=== PATIENT | female | born 1955 | race Caucasian/White ===

== ENCOUNTER → 2024-02-29 | Outpatient (CLI) | payer MEDICARE, SELFPAY ==
--- NOTE | 2024-02-29 09:28 | US_ITS ---
INDICATION: THROMBOCYTOPENIA EXAMINATION: Ultrasound US Abdomen Complete TECHNIQUE: Hernandez-scale and color Doppler imaging was performed of the abdomen. COMPARISON: No relevant prior comparison study available FINDINGS: LIVER: There is normal echotexture. No focal hepatic lesion. No intrahepatic biliary ductal dilatation. There is no free fluid. GALLBLADDER AND BILIARY TREE: No shadowing gallstone, pericholecystic fluid or gallbladder wall thickening is demonstrated. The proximal common bile duct measures 4.4 mm, which is within normal limits for the patient''s age. SONOGRAPHIC LUO''S SIGN: Negative. PANCREAS: No focal abnormality is demonstrated in the pancreas. No pancreatic ductal dilatation. SPLEEN: Spleen is enlarged measuring up to 17.2 cm in the craniocaudal dimension. KIDNEYS: There is no hydronephrosis. There are echogenic foci within the left kidney measuring up to 9.1 mm by my measurements. No focal lesion, or perinephric collection is demonstrated. VESSELS: Submitted longitudinal images of the intra-abdominal aorta demonstrate no gross abnormalities and are unremarkable. The IVC is patent. US/Abdomen Complete IMPRESSION: Splenomegaly. Echogenic foci within the left kidney, may reflect nonobstructing calculi or may be vascular. Electronically Signed: Zoë Aadms MD at 17:00 EST ,
== END | disposition home or self-care (01) ==
PROVIDERS: PCP Physician Assistant; Referring Provider Internal Medicine Medical Oncology; Visit Provider Internal Medicine Medical Oncology
DX: D69.6 Thrombocytopenia, unspecified (principal)
CPT/HCPCS: 76700

== ENCOUNTER → 2024-04-11 | Outpatient (CLI) | payer MEDICARE, SELFPAY ==
--- NOTE | 2024-04-11 12:42 | CT_ITS ---
PROCEDURE: EXTREMITY LOWER WITHOUT CONTRA REASON FOR EXAM: Chronic left knee pain. [facility] protocol for surgical planning of left total knee replacement. TECHNIQUE: Multiple axial tomographic images of the left hip joint, left knee joint and left ankle joint were obtained. Coronal and sagittal reconstruction was obtained as well. COMPARISON: None. FINDINGS: Bones: No evidence of fracture. Joints: Imaging of the left hip joint was obtained. Beeg-ow-azcyaxrf degree of joint space narrowing along the posterior aspect of the left hip joint. Imaging of the left knee joint was obtained. There is a marked degree of joint space narrowing and subchondral cystic changes in both compartments of the knee worse on the medial aspect. There is also evidence of degenerative spur formation along the distal femoral condyles and medial tibial plateau. Marked degree of joint space narrowing and degenerative changes of the patellofemoral joint with evidence of degenerative spur formation. Imaging of the ankle joint was obtained. No significant abnormality is seen. Soft Tissues: Moderate-sized knee joint effusion. CT/Extremity Lower without Contra IMPRESSION: Marked degree of tricompartmental osteoarthritis of the left knee joint with a moderate-sized joint effusion. One or more dose reduction techniques were used (e.g., Automated exposure contr ol, adjustment of the mA and/or kV according to patient size, use of iterative reconstruction technique). Reading Location: [facility]
[2024-04-11 13:41] LABS: Absolute Lymphocyte Count 0.92 X10^3/uL (0.83-4.51); Absolute Neutrophil Count 2.8 X10^3/uL (2.0-7.7); Basophil# 0.03 X10^3/uL; Basophil% 0.7 % (0-1); Eosinophil# 0.05 X10^3/uL; Eosinophils% 1.2 % (0-5); Hematocrit 37.2 % (37-47); Hemoglobin 13.1 g/dL (12.0-15.0); Lymphocyte # 0.92 X10^3/ul (0.83-4.51); Lymphocyte % 22.1 % (19-41); Mean Corp Hgb Conc 35.2 g/dL (32-36); Mean Corpuscular Hgb 29.8 pg (27.0-32.0); Mean Corpuscular Volume 84.5 fL (81-99); Mean Platelet Vol. 8.8 fl (6.2-12.0); Monocyte# 0.39 X10^3/uL; Monocyte% 9.4 % (0-10); NRBC Flagged by Analyzer 0 % (0-5); Neutrophil # 2.76 X10^3/uL (2.7-7.7); Neutrophil % 66.4 % (47-70); Platelet Count 116 K/mm3 (150-450); RBC Distribution Width CV 13.6 % (11.6-14.6); RBC Distribution Width SD 41.9 fl (35.1-43.9); White Blood Count 4.2 K/mm3 (4.4-11.0)
== END | disposition home or self-care (01) ==
PROVIDERS: PCP Physician Assistant; Referring Provider Internal Medicine Hematology & Oncology; Visit Provider Specialist
DX: M17.12 Unilateral primary osteoarthritis, left knee (principal); M21.162 Varus deformity, not elsewhere classified, left knee; D69.6 Thrombocytopenia, unspecified
CPT/HCPCS: 73700; 85025

== ENCOUNTER 2024-05-05 07:10 | Observation (INO) | payer MEDICARE, SELFPAY ==
[2024-04-11 13:45] LABS: Hemoglobin A1c 5.3 % (<=5.6)
[2024-04-11 14:06] LABS: Albumin, Serum 4.1 g/dL (3.4-4.8); Magnesium 1.9 mg/dL (1.5-2.2)
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
[2024-05-05] VITALS (17 sets, daily range): BP systolic 75–127; BP diastolic 39–68; PULSE 66–96; RESP 12–18; TEMP 36.1–37.1; O2SAT 94–100; BMI 33.5; BMI 33.6
--- NOTE | 2024-05-05 07:09 | PRE.ANES_ITS ---
Assessment & Plan Anesthesia* Anesthesia Assessment Anesthesia Assessment: Discussed sedation and/or anesthesia options, risks, benefits, and alternatives with patient/parents/legal guardian/POA. Questions invited. The patient/parents/legal guardian/POA seems to understand and agrees to proceed with anesthesia plan. Reviewed the physical assessment, medical history, allergy history and patient home medications list prior to surgery/procedure/anesthetic and documented any changes. Performed airway and anesthesia risk assessments. Focused Labs Anesthesia Preop lab: CBC WBC 4.2 K/mm3 (4.4-11.0) L 04/11/24 13:17 04/11/24 RBC 4.40 M/mm3 (4.2-5.4) 04/11/24 13:17 04/11/24 Hgb 13.1 g/dL (12.0-15.0) 04/11/24 13:17 04/11/24 Hct 37.2 % (37-47) 04/11/24 13:17 04/11/24 Plt Count 116 K/mm3 (150-450) L 04/11/24 13:17 04/11/24 CHEMISTRY Potassium 3.9 mmol/L (3.5-5.1) 02/26/24 16:50 02/26/24 Sodium 138 mmol/L (136-145) 02/26/24 16:50 02/26/24 Magnesium 1.9 mg/dL (1.5-2.2) 04/11/24 13:17 04/11/24 BUN 13 mg/dL (7-18) 02/26/24 16:50 02/26/24 Creatinine 0.70 mg/dL (0.55-1.02) 02/26/24 16:50 02/26/24 Glucose 116 mg/dL (74-106) H 02/26/24 16:50 02/26/24 COAG Pre-Assessment Diagnosis/Proposed Procedure Planned Operative Procedure(s): LEFT TOTAL KNEE REPALCEMENT ROBOTIC ASSIST Anesthesia History Anesthesia History - senior systems analyst: Anesthesia History - senior systems analyst Hx Hospitalization No 04/08/24 10:16 Any Problems With Anesthesia No 04/08/24 10:16 Cholinesterase deficiency No 04/08/24 10:16 You/Your Family Experience No 04/08/24 10:16 fever (hyperthermia) with Relationship Recent Exposure to Contagious Disease Does patient have nerve No 04/08/24 10:16 stimulator Patient instructed to have device shut off --Does patient have Pacemaker or ICD? When Was Last Pacemaker Check QUESTION #4 FULL TEXT: You/Your Family Experience fever (hyperthermia) with Anesthesia Last Oral Intake Last Oral intake: Last Oral Intake NPO since Meds taken in AM with sips of water? Meds patient instructed to take am of surgery PONV PONV - senior systems analyst: PONV - senior systems analyst Female Yes 04/08/24 10:16 HX of Motion Sickness No 04/08/24 10:16 HX of N/V After Surgery No 04/08/24 10:16 Non-Smoker Yes 04/08/24 10:16 Duration of Surgery greater Yes 04/08/24 10:16 than 60 minutes Number of Risk Factors 3 04/08/24 10:16 PONV Score Moderate Risk 04/08/24 10:16 Height & Weight Height & Weight: Anesthesia: Height & Weight Height 5 ft 5 in 03/19/24 15:33 Respiratory Assessment Respiratory Assessment - senior systems analyst: Respiratory Tract Infection Hx - senior systems analyst Hx Respiratory Tract Infection No 04/08/24 10:16 STOP Sleep Apnea STOP Sleep Apnea - senior systems analyst: STOP Sleep Apnea - senior systems analyst Hx Hypertension No 04/08/24 10:16 Hx Sleep Apnea No 04/08/24 10:16 CPAP BIPAP Do you snore loudly (louder Yes 04/08/24 10:16 than talking or can be heard Do you often feel tired/ No 04/08/24 10:16 fatigued/ sleepy during daytime? Has anyone observed you stop No 04/08/24 10:16 breathing during sleep? STOP Results Negative 04/08/24 10:16 QUESTION #5 FULL TEXT : Do you snore loudly (louder than talking or can be heard through closed doors)? Tobacco Use History Tobacco Use History - senior systems analyst: Tobacco Use History - senior systems analyst Tobacco Use Smoking Status Never smoker 04/08/24 10:16 Hx Tobacco Use No 04/08/24 10:16 Years Smoking Packs Smoked per Day Smoking Cessation Date was within the last 15 years Hx Smoking Cessation Date Hx Smoking Cessation Counseling Hematologic Medial History Hematologic Hx - senior systems analyst: Hematologic Medical Hx - binding folder machine Hx of Blood Transfusion No 04/08/24 10:16 Hx of Transfusion in last 3 No 04/08/24 10:16 Months Date of Last Transfusion (if within last 3 months) Ever experience any problems No 04/08/24 10:16 with transfusion(s)? Specify any problems Hx of Preganancy in last 3 No 04/08/24 10:16 Months Nurse Filling Out Transfusion [id number] 04/08/24 10:16 & Questions: Date: 04/08/24 04/08/24 10:16 Time: 10:38 04/08/24 10:16 Patient unable to answer at this time (ie. confused, unrespo /Reproduction History /Reproductive History - senior systems analyst: /Reproductive Hx- senior systems analyst Hx Now No 04/08/24 10:16 Gestational Age (in weeks): EDC: Hx Hx Para Hx Section SAB No 04/08/24 10:16 Active Medications Active Medications: Current Medications Generic Name Dose Route Start Last Admin Trade Name Freq PRN Reason Stop Dose Admin Acetaminophen 1,000 mg 05/05/24 10:00 Acetaminophen 500 Mg Tablet PO 05/05/24 10:01 X1 ONE Celecoxib 400 mg 05/05/24 10:00 Celecoxib 200 Mg Capsule PO 05/05/24 10:01 X1 ONE Tranexamic Acid 2,000 mg/ 0 mg 05/05/24 10:00 Sodium Chloride 100 ml OPERA.SITE 05/05/24 10:01 X1 ONE Sodium Chloride 77.4 ml/ 0 ml 05/05/24 10:00 Ropivacaine 200 mg/ OPERA.SITE 05/05/24 10:01 Epinephrine HCl 0.6 mg/ X1 ONE Ketorolac Tromethamine 30 mg/ Morphine Sulfate 5 mg Dexamethasone Sodium Phosphate 10 mg 05/05/24 10:00 Dexamethasone 10 Mg/Ml Vial IV 05/05/24 10:01 X1 ONE Gabapentin 600 mg 05/05/24 10:00 Gabapentin 600 Mg Tablet PO 05/05/24 10:01 X1 ONE Lactated Ringer's 1,000 mls @ 999 mls/hr 05/05/24 10:00 IV 05/05/24 11:00 .Q1H1M EMILY Cefazolin Sodium 2 gm/ N/A 20 mls @ 400 mls/hr 05/05/24 10:00 IV 05/05/24 10:02 PREOP ONE Vancomycin HCl 1,250 mg/ 275 mls @ 183.333 mls/hr 05/05/24 10:00 Sodium Chloride IV 05/05/24 11:29 PREOP ONE Magnesium Sulfate 2 gm/ 104 mls @ 208 mls/hr 05/05/24 10:00 Dextrose IV 05/05/24 10:29 X1 ONE Insulin Human Lispro 1 - 6 unit 05/05/24 10:00 Insulin Lispro 100 Unit/Ml Insuln.Pen SC Q4H PRN PRN BG>/= 180, SEE PROTOCOL Protocol PFSH Medical History Colonoscopy planned Wears glasses Back pain Rheumatoid arthritis Splenomegaly Leukopenia Obesity Diabetes Thrombocytopenia Elevated LFTs Hyperglycemia Nephrolithiasis Left knee pain Arthritis 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 Liver fibrosis Home Medications ?Medication ?Instructions ?Recorded ?Last Taken ?Type naproxen sodium 220 mg tablet 220 mg PO BID PRN pain 0 03/19/24 Unknown History (Aleve) acetaminophen 650 mg 650 mg PO Q12H PRN pain 05/30 Unknown History tablet,extended release (8 Hour Pain Reliever) cholecalciferol (vitamin D3) 25 25 mcg PO DAILY Unknown History mcg (1,000 unit) capsule (Vitamin D3) mv-min-iron 4.5 mg-folic ac 120 1 tab PO DAILY 5 Unknown History mcg-vit K1 60 mcg-herbal no.352 tablet (Alive Women's Multivitamin) Allergy/AdvReac Type Severity Reaction Status Date / Time No Known Allergies Allergy Verified 04/08/24 10:12 Family History Mother Thyroid disorder Diabetes Arthritis CAD (coronary artery disease) Father Cancer Sister Diabetes Hypertension Brother Diabetes Surgical History History of liver biopsy History of repair of retinal tear by laser photocoagulation Social History Smoking Status: Never smoker alcohol intake: never substance use type: does not use Review of Systems (Anesthesia) ROS Narrative System reviewed and no additional complaints, except as documented.
[2024-05-05] MEDS: Lactated Ringers 1,000 ML 999 ML IV (07:38)
[2024-05-05 07:39] LABS: Hematocrit 35.9 % (37-47); Hemoglobin 12.9 g/dL (12.0-15.0); Mean Corp Hgb Conc 35.9 g/dL (32-36); Mean Corpuscular Hgb 29.7 pg (27.0-32.0); Mean Corpuscular Volume 82.7 fL (81-99); Mean Platelet Vol. 8.9 fl (6.2-12.0); Platelet Count 104 K/mm3 (150-450); RBC Distribution Width CV 13.3 % (11.6-14.6); RBC Distribution Width SD 39.9 fl (35.1-43.9); Red Blood Count 4.34 M/mm3 (4.2-5.4)
[2024-05-05] MEDS: Magnesium 2 GM for ERAS IV (07:39)
[2024-05-05] MEDS: Vancomycin HCl 1,250 MG in 0.9% Normal Saline (250mL Bag) 250 ML 183.3 MG IV (07:39)
[2024-05-05] MEDS: Acetaminophen 500 MG Tablet 1000 MG PO ×3 (07:39→20:17)
[2024-05-05] MEDS: Gabapentin 600 MG Tablet PO (07:39)
[2024-05-05] MEDS: Celecoxib 200 MG Capsule 400 MG PO (07:39)
--- NOTE | 2024-05-05 08:17 | PRE.ANES_ITS ---
ASA Classification* ASA Classification ASA Classification: 2 Assessment & Plan Anesthesia* Anesthesia Assessment Anesthesia Assessment: Discussed sedation and/or anesthesia options, risks, benefits, and alternatives with patient/parents/legal guardian/POA. Questions invited. The patient/parents/legal guardian/POA seems to understand and agrees to proceed with anesthesia plan. Reviewed the physical assessment, medical history, allergy history and patient home medications list prior to surgery/procedure/anesthetic and documented any changes. Performed airway and anesthesia risk assessments. Anesthesia Type Anesthesia Type: Spinal and Block Anesthesia Focused Assessment* Temperature: 97.8 F Pulse Rate: 86 Blood Pressure: 111/60 Respiratory Rate: 16 Pulse Ox: 98 Airway Assessment Mouth opens: >3 cm Mallampati Score: II Focused Labs Anesthesia Preop lab: CBC WBC 4.0 K/mm3 (4.4-11.0) L 05/05/24 07:05/05/24 RBC 4.34 M/mm3 (4.2-5.4) 05/05/24 07:05/05/24 Hgb 12.9 g/dL (12.0-15.0) 05/05/24 07:30 05/05/24 Hct 35.9 % (37-47) L 05/05/24 07:30 05/05/24 Plt Count 104 K/mm3 (150-450) L 05/05/24 07:30 05/05/24 CHEMISTRY Potassium 3.9 mmol/L (3.5-5.1) 02/26/24 16:50 02/26/24 Sodium 138 mmol/L (136-145) 02/26/24 16:50 02/26/24 Magnesium 1.9 mg/dL (1.5-2.2) 04/11/24 13:17 04/11/24 BUN 13 mg/dL (7-18) 02/26/24 16:50 02/26/24 Creatinine 0.70 mg/dL (0.55-1.02) 02/26/24 16:50 02/26/24 Glucose 116 mg/dL (74-106) H 02/26/24 16:50 02/26/24 COAG PT Pending 05/05/24 07:30 05/05/24 Pre-Assessment Diagnosis/Proposed Procedure Planned Operative Procedure(s): LEFT TOTAL KNEE REPALCEMENT ROBOTIC ASSIST Anesthesia History Anesthesia History - financial administrator: Anesthesia History - financial administrator Hx Hospitalization No 04/08/24 10:16 Any Problems With Anesthesia No 04/08/24 10:16 Cholinesterase deficiency No 04/08/24 10:16 You/Your Family Experience No 04/08/24 10:16 fever (hyperthermia) with Relationship Recent Exposure to Contagious No 05/05/24 07:41 Disease Does patient have nerve No 04/08/24 10:16 stimulator Patient instructed to have device shut off --Does patient have Pacemaker No 05/05/24 07:41 or ICD? When Was Last Pacemaker Check QUESTION #4 FULL TEXT: You/Your Family Experience fever (hyperthermia) with Anesthesia Last Oral Intake Last Oral intake: Last Oral Intake NPO since 04:45 05/05/24 07:41 Meds taken in AM with sips of No 05/05/24 07:41 water? Meds patient instructed to take am of surgery PONV PONV - financial administrator: PONV - financial administrator Female Yes 04/08/24 10:16 HX of Motion Sickness No 04/08/24 10:16 HX of N/V After Surgery No 04/08/24 10:16 Non-Smoker Yes 04/08/24 10:16 Duration of Surgery greater Yes 04/08/24 10:16 than 60 minutes Number of Risk Factors 3 04/08/24 10:16 PONV Score Moderate Risk 04/08/24 10:16 Height & Weight Height & Weight: Anesthesia: Height & Weight Height 5 ft 5 in 05/05/24 07:41 Weight: 91.5 kg 05/05/24 07:41 Body Mass Index (BMI) 33.5 05/05/24 07:41 Respiratory Assessment Respiratory Assessment - financial administrator: Respiratory Tract Infection Hx - financial administrator Hx Respiratory Tract Infection No 04/08/24 10:16 STOP Sleep Apnea STOP Sleep Apnea - financial administrator: STOP Sleep Apnea - financial administrator Hx Hypertension No 04/08/24 10:16 Hx Sleep Apnea No 04/08/24 10:16 CPAP BIPAP Do you snore loudly (louder Yes 04/08/24 10:16 than talking or can be heard Do you often feel tired/ No 04/08/24 10:16 fatigued/ sleepy during daytime? Has anyone observed you stop No 04/08/24 10:16 breathing during sleep? STOP Results Negative 04/08/24 10:16 QUESTION #5 FULL TEXT : Do you snore loudly (louder than talking or can be heard through closed doors)? Tobacco Use History Tobacco Use History - financial administrator: Tobacco Use History - financial administrator Tobacco Use Smoking Status Never smoker 04/08/24 10:16 Hx Tobacco Use No 04/08/24 10:16 Years Smoking Packs Smoked per Day Smoking Cessation Date was within the last 15 years Hx Smoking Cessation Date Hx Smoking Cessation Counseling Hematologic Medial History Hematologic Hx - financial administrator: Hematologic Medical Hx - enterer Hx of Blood Transfusion No 04/08/24 10:16 Hx of Transfusion in last 3 No 04/08/24 10:16 Months Date of Last Transfusion (if within last 3 months) Ever experience any problems No 04/08/24 10:16 with transfusion(s)? Specify any problems Hx of Preganancy in last 3 No 04/08/24 10:16 Months Nurse Filling Out Transfusion [email or web address] 04/08/24 10:16 & Questions: Date: 04/08/24 04/08/24 10:16 Time: 10:38 04/08/24 10:16 Patient unable to answer at this time (ie. confused, unrespo /Reproduction History /Reproductive History - financial administrator: /Reproductive Hx- financial administrator Hx Now No 04/08/24 10:16 Gestational Age (in weeks): EDC: Hx Hx Para Hx Section SAB No 04/08/24 10:16 Active Medications Active Medications: Current Medications Generic Name Dose Route Start Last Admin Trade Name Freq PRN Reason Stop Dose Admin Acetaminophen 1,000 mg 05/05/24 10:00 05/05/24 07:39 Acetaminophen 500 Mg Tablet PO 05/05/24 10:01 1,000 mg X1 ONE Administration Acetaminophen 1,000 mg 05/05/24 07:15 Acetaminophen 500 Mg Tablet PO Q8H EMILY Celecoxib 400 mg 05/05/24 10:00 05/05/24 07:39 Celecoxib 200 Mg Capsule PO 05/05/24 10:01 400 mg X1 ONE Administration Tranexamic Acid 2,000 mg/ 0 mg 05/05/24 10:00 Sodium Chloride 100 ml OPERA.SITE 05/05/24 10:01 X1 ONE Sodium Chloride 77.4 ml/ 0 ml 05/05/24 10:00 Ropivacaine 200 mg/ OPERA.SITE 05/05/24 10:01 Epinephrine HCl 0.6 mg/ X1 ONE Ketorolac Tromethamine 30 mg/ Morphine Sulfate 5 mg Dexamethasone Sodium Phosphate 10 mg 05/05/24 10:00 Dexamethasone 10 Mg/Ml Vial IV 05/05/24 10:01 X1 ONE Doxycycline Monohydrate 100 mg 05/06/24 13:00 Doxycycline 100 Mg Capsule PO BID [facility] Enteral Nutritional Formula 237 ml 05/05/24 08:00 Ensure Surgery 237 Ml Liquid PO TIDCM [facility] Famotidine 20 mg 05/05/24 10:00 Famotidine 20 Mg Tablet PO DAILY [facility] Gabapentin 600 mg 05/05/24 10:00 05/05/24 07:39 Gabapentin 600 Mg Tablet PO 05/05/24 10:01 600 mg X1 ONE Administration Lactated Ringer's 1,000 mls @ 999 mls/hr 05/05/24 10:00 05/05/24 07:38 IV 05/05/24 11:00 999 mls/hr .Q1H1M EMILY Administration Cefazolin Sodium 2 gm/ N/A 20 mls @ 400 mls/hr 05/05/24 10:00 IV 05/05/24 10:02 PREOP ONE Vancomycin HCl 1,250 mg/ 275 mls @ 183.333 mls/hr 05/05/24 10:00 05/05/24 07:39 Sodium Chloride IV 05/05/24 11:29 183.3 mls/hr PREOP ONE Administration Magnesium Sulfate 2 gm/ 104 mls @ 208 mls/hr 05/05/24 10:00 05/05/24 07:39 Dextrose IV 05/05/24 10:29 208 mls/hr X1 ONE Administration Cefazolin Sodium 1 gm in 50 mls @ 150 mls/hr 05/05/24 07:10 IV 05/05/24 15:29 Q8H EMILY Insulin Human Lispro 1 - 6 unit 05/05/24 10:00 Insulin Lispro 100 Unit/Ml Insuln.Pen SC Q4H PRN PRN BG>/= 180, SEE PROTOCOL Protocol Ketorolac Tromethamine 15 mg 05/05/24 07:10 Ketorolac 15 Mg/Ml Vial IV 05/06/24 07:12 Q6H PRN PRN Pain Score 1-10 Morphine Sulfate 2 - 4 mg 05/05/24 07:10 Morphine 2 Mg/Ml Syringe IV Q2H PRN PRN Pain Score 4-10 Morphine Sulfate 2 - 4 mg 05/05/24 07:42 Morphine 4 Mg/Ml Syringe IV Q2H PRN PRN Pain Score 4-10 Ondansetron HCl 4 mg 05/05/24 07:10 Ondansetron 4 Mg/2 Ml Vial IV Q6H PRN PRN NAUSEA/VOMITING Oxycodone HCl 5 - 10 mg 05/05/24 07:10 Oxycodone 5 Mg Tablet PO Q4H PRN PRN Pain Score 4-10 Promethazine HCl 12.5 mg 05/05/24 07:10 Promethazine 25 Mg Tablet PO Q6H PRN PRN NAUSEA/VOMITING Promethazine HCl 12.5 mg 05/05/24 07:10 Promethazine 25 Mg/Ml Syringe IM Q6H PRN PRN NAUSEA/VOMITING Rivaroxaban 10 mg 05/06/24 06:00 Rivaroxaban 10 Mg Tablet PO DAILY@0600 [facility] Senna/Docusate Sodium 2 tablet 05/05/24 10:00 Senna/Docusate Sodium 1 Tablet PO BID [facility] Medical History Colonoscopy planned Wears glasses Back pain Rheumatoid arthritis Splenomegaly Leukopenia Obesity Diabetes Thrombocytopenia Elevated LFTs Hyperglycemia Nephrolithiasis Left knee pain Arthritis 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 Liver fibrosis Home Medications ?Medication ?Instructions ?Recorded ?Last Taken ?Type naproxen sodium 220 mg tablet 220 mg PO BID PRN pain 0 03/19/24 04/27/24 History (Aleve) acetaminophen 650 mg 650 mg PO Q12H PRN pain 03/0 05/3005/04/24 History tablet,extended release (8 Hour Pain Reliever) cholecalciferol (vitamin D3) 25 25 mcg PO DAILY 05/04/24 History mcg (1,000 unit) capsule (Vitamin D3) mv-min-iron 4.5 mg-folic ac 120 1 tab PO DAILY 5 05/04/24 History mcg-vit K1 60 mcg-herbal no.352 tablet (Alive Women's Multivitamin) Allergy/AdvReac Type Severity Reaction Status Date / Time No Known Allergies Allergy Verified 05/05/24 07:44 Family History Mother Thyroid disorder Diabetes Arthritis CAD (coronary artery disease) Father Cancer Sister Diabetes Hypertension Brother Diabetes Surgical History History of liver biopsy History of repair of retinal tear by laser photocoagulation Social History Smoking Status: Never smoker alcohol intake: never substance use type: does not use Review of Systems (Anesthesia) ROS Narrative System reviewed and no additional complaints, except as documented.
[2024-05-05 08:21] LABS: International Normalized Ratio 1.2; Prothrombin Time (Protime)PT. 15.4 SECONDS (11.7-14.9)
--- NOTE | 2024-05-05 08:45 | KNEE_PTH ---
PATIENT: BERTHA FLORES LOC: MS3 U#:[id number] AGE/SX: 68/F ROOM: [facility] [place] RE05/05/[address]: Dr. Atul Costello MD : 1955 BED: 1 DIS: 05/06/2024 SPEC #: [id number] RECD: 05/05/24 13:43 STATUS: HAI CUONG #: [id number] NAHUM: 05/05/24 08:[address]: Atul Costello DEPT: SURGICAL PATHOLOGY RECD BY: Fred Jaime ENTERED: 05/05/24 13:43 SP TYPE: TOTAL KNEE OTHR DR: SARAI Smith Tissues: A - Knee, NOS Procedures: Decalcification bone/plaque Surgery Specimen Level III HEADER OPERATION: ERAS, total knee replacement robotic arm assist PRE-OP DIAGNOSIS: Severe left knee osteoarthritis with valgus alignment TISSUE SUBMITTED: A- Debrided knee bone and tissue MICROSCOPIC DIAGNOSIS A. Left Knee, Osteoarthritis, Total Knee Arthroplasty: * Active chronic inflammation of subarticular bone marrow with focal fibrinoid necrosis. * Active chronic inflammation of articular cartilage and synovium. * Patchy trilineage hematopoiesis. Note: The active chronic inflammation is associated with degenerative changes of bone and cartilage. The history of positive rheumatoid factor is noted. No distinct rheumatoid nodules are observed. The histologic findings raise consideration of rheumatoid arthritis vs osteomyelitis. Recommend clinical correlation with imaging and microbiology findings. MICROSCOPIC DESCRIPTION Slides are reviewed. GROSS DESCRIPTION A. Received in formalin in a container labeled with the patient's name, date of , and debrided knee bone and tissue are multiple cramer and firm fragments of bone consisting of, but not limited to, medial/lateral condyle and tibial plateau. The specimen is 9.0 x 8.5 x 3.0 cm in aggregate. The resection margins are smooth and firm, and the cortical surfaces are markedly pitted and granular. Sectioning reveals firm surfaces. Correctional Officer Lieutenant sections are submitted in A1 following decalcification. [facility] 05-05-2024 CPT:91418,41544
[2024-05-05] MEDS: Cefazolin 1 GM/50 ML BAG IV ×2 (08:54→17:57)
[2024-05-05] MEDS: Cefazolin 2 GM in Syringe 10 ML IV (08:55)
[2024-05-05 09:33] LABS: Bedside Glucose 108 mg/dL (74-106)
[2024-05-05] MEDS: JPS (Morphine 10mg/ml) OPERA.SITE (09:41)
--- NOTE | 2024-05-05 10:24 | OP.PCM_ITS ---
Problems Associated Problem List Diagnoses (1) Status post left knee replacement: Operative Report (Standard) Operative Information Date of Procedure: 05/05/24 Pre-Operative Diagnosis: Left knee primary osteoarthritis Post-Operative Diagnosis: Left knee primary osteoarthritis Surgery/Procedure Performed: Left knee minimally invasive robotic assisted total arthroplasty lapping machine operator: Yes Ingredient Mixer: Mitzi Knight Tasks completed by airplane first officer: Other (See body of operative report) Additional operations manager assistant?: No Type of Anesthesia: Spinal RN Documented Start/Stop Times: Operation Date: 05/05/24 08:45 Case Time Into Pre-Op 05/05/24 06:58 Out of Pre-Op 05/05/24 08:52 Anesthesia Start 05/05/24 08:54 Into Room 05/05/24 08:54 Procedure Start 05/05/24 09:15 Procedure End 05/05/24 11:51 Anesthesia End 05/05/24 11:55 Out of Room 05/05/24 11:55 Into Recovery 05/05/24 12:00 Out of Recovery 05/05/24 13:27 Procedure Start Time: 09:15 Procedure Stop Time: 11:51 Select all DRAINS/GRAFTS/IMPLANTS that apply: Prosthetic device Prosthetic device details: See body of operative report Special Medications: 2 g Ancef, TXA, joint cocktail (5 mg Duramorph, 30 mL of 0.5% Ropivicaine, 1000 units of epinephrine, 30 mg of Toradol) Estimated Blood Loss: 300 mL Fluids Replaced: 1800 mL crystalloid Specimen collected: Yes Description of specimen(s) removed: Bony cuts Description of surgery: Implants used: 1. [place] size 4 triathlon cruciate retaining distal femoral press-fit component 2. [place] size 4 press-fit tritanium tibial baseplate 3. Pavel X3 10 millimeter CS polyethylene 4. Pavel X3 29 mm asymmetric patella Brief history operative indications: 68-year-old female with history of left knee osteoarthritis with radiographic findings with loss of joint space, osteophyte formation and subchondral sclerosis. Failed conservative measures as mentioned in the H&P. Discussion of total knee arthroplasty as well as risk and benefits were discussed the patient including but not limited to blood loss, DVTs, PEs, neurovascular damage, general risk of anesthesia including loss of life, and stiffness or instability were discussed with patient. Patient demonstrated understanding and was able to sign informed consent. Procedure: On the date of procedure patient's left lower extremity was marked in the preoperative area. The patient was then taken back to the operating room where the patient was placed on the table in the supine position. All bony prominences were identified a well-padded. Anesthesia assumed control of the C-spine and airway and remained controlled throughout the remainder of the procedure. A tourniquet was placed on the left upper thigh and the leg was prepped in a sterile fashion. The surgeon then scrubbed at this time .Upon reentering the room left lower extremity was draped in a standard orthopedic fashion. A timeout was then called and everyone agreed upon the side, the site, the procedure to be performed, patient's identity and antibiotics given. Esmarch bandage was used to exsanguinate the extremity and the tourniquet was placed up to 250 mmHg with the knee in flexion. A midline skin incision was made and sharp dissection was taken down through skin subcutaneous tissue and fat. The standard medial parapatellar incision was made and the patella was subluxed laterally. An Appropriate deep MCL release was done and the fat pad was resected. Our attention was then directed to the patella. The patella was everted and a flat resection was made. The knee was then flexed up in 2 femoral pins were placed inside the incision and 2 tibial pins were placed outside the incision in the medial tibia bicortically. Once this was completed the 2 checkpoints in the femur and tibia were placed. Knee was then flexed up and the bony landmarks were registered. Once this was completed knee was taken through range of motion and manually stressed allowing us to a plan for an appropriate tibial cut. The robotic arm was brought into the field sterilely and checkpoint and saw were registered. Based on the patient's deformity the tibial cut was made in 1 degree of bowel. At this time the tensioner was then placed in the joint and ligament tension was checked at 90 degrees and full extension. Based on the patient's ligamentous tension appropriate adjustments were made to the operative plan and ligament releases were done. Once we were happy with our operative plan with balanced flexion and extension gaps our attention was directed to the femur. The robot was brought into the field sterilely and registered. Posterior condylar cuts, anterior chamfer cuts and anterior cuts were appropriately made for a size 4 femur. When these were completed the saws were switched out in the distal femoral and posterior chamfer cuts were made. Protecting the soft tissue throughout this time. A size 4 tibial base plate was selected. the knee was flexed to 90 degrees and the soft tissues and posterior osteophytes were removed from the joint. 40 cc of the periarticular injection was injected into the posterior medial corner of the joint. The appropriate trials were then placed on the femur and tibia. A trial polyethylene was trialed to ensure proper balancing and stability of the knee. The appropriate tibial internal rotation was then marked with a bovie. Our attention was then directed to the patella. The lug holes were drilled and the patella trial was placed. Patellar tracking was checked and deemed appropriate. Once we were happy lug holes were drilled for the femur and trial components were removed. The tibia was subluxed and pinned into place and the keel was punched and drilled appropriately. Final components were verified and opened. The wound was copiously irrigated with normal saline. When the cement was ready the bone quality was assured and the components were impacted into place starting with the tibia then the femur, finally the patella was compressed into place. The trial poly component was placed and the knee was placed in full extension. Once the the implants were secured, the tracking, alignment and balance were verified and a size [] polyethylene component was placed. Once the final components were placed a 3-minute dilute Betadine lavage was performed followed by an Irrisept lavage was performed and the wound was copiously irrigated with normal saline solution and the periarticular injection was given. The wound was closed in a layer celis fashion using #1 vicryl interrupted sutures for the arthrotomy, 2-0 interrupted Vicryl suture for the subcuticular layer and tiera for final skin closure. A sterile compressive dressing was then placed. The patient was then awakened from anesthesia, transferred to the [facility] and transferred to the PACU for recovery. Post op plan DVT ppx: Xarelto 10 mg daily due to previous DVT, thigh high compression stockings Follow up: in office in 2 weeks for wound check PT: to start POD #0 at hospital, outpatient PT should be arranged. Patient replaced on doxycycline postoperatively secondary to positive staph screening preoperatively My physician operations manager assistant was a vital part of this case, they was important because there was not another skilled set of hands available to their training and aptitude needed for safe and appropriate completion of this case. They were important in appropriate retraction during the case, and protection of soft tissues during bony cuts. In particular the experience and skill of this operations manager assistant made for safe retraction and exposure during implantation of medical implants without damage to vital soft tissues or structures. His intimate knowledge of the case and my steps aided in safe and expedient completion of the procedure as well as appropriate position of the leg during the case. He was also vital in assisting with closure under my direct supervision. Due to the complexity of this case robotic arm was used to assist in the surgery to improve accuracy and clinical outcomes. Surgical Findings: Stage IV osteoarthritis. Stable knee with good patella tracking Complications Complications: No Admit VTE Documentation VTE Present on Admission: No VTE Mechan Device Prophylaxis: SCD's and Thigh High MORRIS Hose VTE Pharm Prophylaxis ordered?: Yes
[2024-05-05] MEDS: TRANEXAMIC ACID 2,000 MG, 0.9% Normal Saline (100mL Bag) 100 ML OPERA.SITE (10:31)
--- NOTE | 2024-05-05 12:20 | RAD_ITS ---
PROCEDURE: KNEE 1 OR 2 VIEWS 05/05/2024 REASON FOR EXAM: POST OP TOTAL TECHNIQUE: 2 view(s) of the left knee COMPARISON: None FINDINGS: The patient is status post left total knee replacement. There is good alignment. Postoperative soft tissue changes. RAD/Knee 1 or 2 Views IMPRESSION: Status post left total knee replacement. There is good alignment. Postoperative soft tissue changes. Reading Location: [facility]-
--- NOTE | 2024-05-05 12:21 | PCM.POST.ANE ---
Anesthesia: Postop Eval I Current Vital Signs Temperature: 98.1 F Pulse Rate: 86 Blood Pressure: 100/55 Respiratory Rate: 16 Pulse Ox: 94 Assessment Airway patent: Yes Spontaneous unlabored respirations: Yes nausea: Yes Vomiting: No Anesthesia Complication: No Fluid Hydration Crystalloid volume administer (ml): 2,000 Total IV fluid infused: 2,000 Progress Note Anesthesia document: Postop Eval 1 completed: Yes
--- NOTE | 2024-05-05 12:52 | POSTOPAN2_ITS ---
Anesthesia Postop Eval I Sum Postop Eval Completion status Anesthesia document: Postop Eval 1 completed: Yes Anesthesia Postop Eval I Summary Anesthesia Postop Eval I Summary: Anesthesia Postop Eval I: Assessment Summary Airway patent Yes 05/05/24 12:21 BROMINATION EQUIPMENT OPERATOR.[email or web address] Spontaneous unlabored Yes 05/05/24 12:21 BROMINATION EQUIPMENT OPERATOR.TNES respirations Mental status nausea Yes 05/05/24 12:21 BROMINATION EQUIPMENT OPERATOR.TNES Vomiting No 05/05/24 12:21 BROMINATION EQUIPMENT OPERATOR.TNES Anesthesia Postop Eval I: Fluid Summary Crystalloid volume administer 2,000 05/05/24 12:21 BROMINATION EQUIPMENT OPERATOR.TNES (ml) Colloids volume administered ( ml) Blood Product volume administered (ml) Total IV fluid infused 2,000 05/05/24 12:21 BROMINATION EQUIPMENT OPERATOR.TNES Anesthesia Postop Eval I: Summary Notes Anesthesia Complication No 05/05/24 12:21 BROMINATION EQUIPMENT OPERATOR.TNES Anesthesia Complication Comment: Post-operative progress note Anesthesia: Postop Eval II Evaluation Mental status: Awake Pain Level: 0 nausea: No Vomiting: No
--- NOTE | 2024-05-05 12:52 | PCM.POSTANE2 ---
Anesthesia Postop Eval I Sum Postop Eval Completion status Anesthesia document: Postop Eval 1 completed: Yes Anesthesia Postop Eval I Summary Anesthesia Postop Eval I Summary: Anesthesia Postop Eval I: Assessment Summary Airway patent Yes 05/05/24 12:21 STRIPPING AND BOOKING MACHINE OPERATOR.[email or web address] Spontaneous unlabored Yes 05/05/24 12:21 STRIPPING AND BOOKING MACHINE OPERATOR.TNES respirations Mental status nausea Yes 05/05/24 12:21 STRIPPING AND BOOKING MACHINE OPERATOR.TNES Vomiting No 05/05/24 12:21 STRIPPING AND BOOKING MACHINE OPERATOR.TNES Anesthesia Postop Eval I: Fluid Summary Crystalloid volume administer 2,000 05/05/24 12:21 STRIPPING AND BOOKING MACHINE OPERATOR.TNES (ml) Colloids volume administered ( ml) Blood Product volume administered (ml) Total IV fluid infused 2,000 05/05/24 12:21 STRIPPING AND BOOKING MACHINE OPERATOR.TNES Anesthesia Postop Eval I: Summary Notes Anesthesia Complication No 05/05/24 12:21 STRIPPING AND BOOKING MACHINE OPERATOR.TNES Anesthesia Complication Comment: Post-operative progress note Anesthesia: Postop Eval II Evaluation Mental status: Awake Pain Level: 0 nausea: No Vomiting: No
--- NOTE | 2024-05-05 16:00 | PN.HOSP_ITS ---
Reason for Visit Reason for Visit: Diagnoses Encounter for other preprocedural examination (05/05/24) Subjective Subjective 68-year-old female history of nephrolithiasis, leukopenia, thrombocytopenia presented to [facility] 05/05/2024 for a left total knee arthroplasty with Dr. Costello.? Hospitalist consulted for postop medical management. ?Patient evaluated at bedside. Patient overall feeling well, anxious to be able to sit up and move around, no chest pain or shortness of breath, no other acute complaints Objective Data Objective Data Vital Signs: Vital Signs Temp Pulse Resp BP Pulse Ox O2 Del Method O2 Flow Rate 97.7 F L 93 14 111/58 L 100 Room Air 4 05/05/24 14:05/05/24 14:05/05/24 14:05/05/24 14:05/05/24 14:05/05/24 14:05/05/24 13:52 Oxygen Flow Rate (L/min) 4 Oxygen Delivery Method Room Air Weight: 91.5 kg Body Mass Index (BMI) 33.6 Intake & Output: Intake and Output for Last 24 Hours 05/03/24 05/04/24 05/05/24 23:59 23:59 23:59 Intake Total 1449 / 1449 Balance 1449 / 1449 Lab / Micro Data 05/05/24 07:30 Labs: Laboratory Results - last 24 hr 05/05/24 07:21: POC Glucose 108 H 05/05/24 07:30: WBC 4.0 L, RBC 4.34, Hgb 12.9, Hct 35.9 L, MCV 82.7, MCH 29.7, MCHC 35.9, RDW Std Deviation 39.9, RDW Coeff of Janet 13.3, Plt Count 104 L, MPV 8.9, PT 15.4 H, INR 1.2 Micro: Microbiology 04/11/24 13:17 Swab (Method) Nasal Screen MRSA/MSSA - Final Radiography Diagnostic Testing: Radiology Impression Knee X-Ray 05/05/24 12:20 IMPRESSION: Status post left total knee replacement. There is good alignment. Postoperative soft tissue changes. Reading Location: [place] [address] Physical Exam Narrative General: Alert, oriented, no apparent distress HEENT: Atraumatic, normocephalic Eyes: Anicteric, normal conjunctiva, extraocular movements grossly intact Neck: Supple Respiratory: Clear to auscultation bilaterally, normal respiratory effort Cardiovascular: Regular rate and rhythm GI: Soft, nontender, nondistended Extremities: No edema Musculoskeletal: Left knee postop, otherwise moving all extremities in bed Neuro: No overt focal neurological deficits Skin: No rashes appreciated Psych: Cooperative Assessment & Plan Assessment/Plan (1) Leukopenia: QUALIFIERS: Leukopenia type: unspecified Qualified Code(s): D 72.819 - Decreased white blood cell count, unspecified PLAN: Plan # Chronic history of leukopenia and thrombocytopenia -labs this a.m. appear to be at baseline -Repeat labs in the a.m. -Follows with Dr. Waldron on an outpatient basis # Left knee osteoarthritis -Status post left knee minimally invasive robotic assisted total arthroplasty with Dr. Costello 05/05/2024 -PT/OT -Pain management/postop management per primary #DVT ppx: Timing at the discretion of primary Belkis De Los Santos MD Time spent in the patient's overall evaluation, decision-making process, review of diagnostic data, adjustment of management, discussion with other providers, nursing and ancillary staff involved in patient's care documentation, 18 Minutes Charges/Coding Visit Charges Office Visits / Consults: [id number] OV L2 Est 10min
[2024-05-05] MEDS: Ensure Surgery 237 ML LIQUID PO (17:57)
[2024-05-05] MEDS: Senna/Docusate Sodium 1 Tablet 2 TABLET PO (20:17)
[2024-05-06] MEDS: Cefazolin 1 GM/50 ML BAG IV (01:30)
[2024-05-06 02:43] VITALS: BP 103/49; PULSE 76; RESP 16; TEMP 36.4; O2SAT 98
[2024-05-06 02:46] VITALS: BMI 33.6
[2024-05-06 04:48] VITALS: BMI 33.6
[2024-05-06] MEDS: Acetaminophen 500 MG Tablet 1000 MG PO ×2 (06:12→13:24)
[2024-05-06] MEDS: Rivaroxaban 10 MG Tablet PO (06:12)
[2024-05-06 07:24] LABS: Hematocrit 24.4 % (37-47); Hemoglobin 8.6 g/dL (12.0-15.0); Mean Corp Hgb Conc 35.2 g/dL (32-36); Mean Corpuscular Hgb 29.7 pg (27.0-32.0); Mean Corpuscular Volume 84.1 fL (81-99); Mean Platelet Vol. 9.3 fl (6.2-12.0); Platelet Count 96 K/mm3 (150-450); RBC Distribution Width CV 13.8 % (11.6-14.6); RBC Distribution Width SD 41.4 fl (35.1-43.9); White Blood Count 6.1 K/mm3 (4.4-11.0)
[2024-05-06 07:40] LABS: POSITIVE COUNT NO; POSITIVE MORPHOLOGY YES
[2024-05-06 07:41] LABS: Scan Indicated on CBC? Y/N YES- FLAGS NOTED
[2024-05-06 08:01] LABS: Anion Gap 10 (5-15); BUN 15 mg/dL (4-19); BUN/Creat Ratio 22.8 RATIO (10-20); Calcium,Total 8.8 mg/dL (7.6-11.0); Carbon Dioxide 23.1 mmol/L (21.0-32.0); Chloride 104 mmol/L (98-108); Creatinine, Serum 0.65 mg/dL (0.70-1.20); EST Glomerular Filtration Rate 95 (>60); Estimated Creatinine Clearance 72.73 ml/min (50-250); Glucose 175 mg/dL (70-99); Potassium 4.3 mmol/L (3.3-5.1); Sodium Level 137 mmol/L (133-145)
[2024-05-06 08:14] VITALS: O2SAT 98
[2024-05-06 08:20] LABS: Differential Comment SCANNED
[2024-05-06 08:42] VITALS: BP 109/56; PULSE 69; RESP 16; TEMP 36.6; O2SAT 100
[2024-05-06] MEDS: Famotidine 20 MG Tablet PO (08:44)
[2024-05-06] MEDS: Senna/Docusate Sodium 1 Tablet 2 TABLET PO (08:44)
[2024-05-06] MEDS: Ensure Surgery 237 ML LIQUID PO ×2 (08:48→11:48)
--- NOTE | 2024-05-06 09:05 | PCM.PN.ORT ---
Subjective Subjective Patient is lying comfortably in bedside chair. Patient states that she has been up going to the bathroom and getting to the bedside chair. Patient states that her pain is adequately controlled. Patient denies any shortness of breath, chest pain, calf pain. Patient denies any nausea, vomiting, dizziness, lightheadedness. Patient denies any fever, chills, signs of infection. Patient denies any adverse events overnight. Patient states that she is ready to go home. Objective Data Objective Data Vital Signs: Vital Signs Temp Pulse Resp BP Pulse Ox O2 Del Method O2 Flow Rate 97.8 F 69 16 109/56 L 100 Room Air 4 05/06/24 08:42 05/06/24 08:42 05/06/24 08:42 05/06/24 08:42 05/06/24 08:42 05/06/24 08:42 05/05/24 13:52 Oxygen Flow Rate (L/min) 4 Oxygen Delivery Method Room Air Weight: 91.5 kg Body Mass Index (BMI) 33.6 Intake & Output: Intake and Output for Last 24 Hours 05/04/24 05/05/24 05/06/24 23:59 23:59 23:59 Intake Total 1948 650 / 650 Balance 1948 650 / 650 Lab / Micro Data 05/06/24 06:47 05/06/24 06:47 Labs: Laboratory Results - last 24 hr 05/05/24 07:21: POC Glucose 108 H 05/06/24 06:47: WBC 6.1, RBC 2.90 L, Hgb 8.6 L, Hct 24.4 L, MCV 84.1, MCH 29.7, MCHC 35.2, RDW Std Deviation 41.4, RDW Coeff of Janet 13.8, Plt Count 96 L, MPV 9.3, Differential Comment SCANNED, Sodium 137, Potassium 4.3, Chloride 104, Carbon Dioxide 23.1, Anion Gap 10, BUN 15, Creatinine 0.65 L, Estim Creat Clear Calc 72.73, Est GFR (MDRD) Non-Af 95, BUN/Creatinine Ratio 22.8 H, Glucose 175 H, Calcium 8.8 Micro: Microbiology 04/11/24 13:17 Swab (Method) Nasal Screen MRSA/MSSA - Final Radiography Diagnostic Testing: Radiology Impression Knee X-Ray 05/05/24 12:20 IMPRESSION: Status post left total knee replacement. There is good alignment. Postoperative soft tissue changes. Reading Location: [facility] Physical Exam Narrative 1. MORIRS hose in place bilaterally. 2. SCDs in place bilaterally. 3. Dressing is clean dry and intact. 4. Dorsiflexion and plantarflexion are performed actively without pain or restriction. 5. Sensation intact to light touch. 6. Neurovascularly intact. 7. Patient's left calf is with swelling and tenderness to palpation. Const alert, oriented x3 and no apparent distress Assessment & Plan Assessment/Plan (1) Status post left knee replacement: PLAN: PLAN: Status post left total knee replacement day 1. 1. DVT prophylaxis: Patient will be on Xarelto for 2 weeks postoperatively due to previous DVT, patient will then move to aspirin 81 mg twice daily for the following 2 weeks. Patient was educated to not take any anti-inflammatory medications while taking Xarelto. Patient will also be wearing MORRIS hose for 2 weeks postoperatively. 2. Pain medications: Patient was instructed to take Tylenol 1000 mg every 8 hours [id number] taking no more than 3000 mg in 24 hours. The use of Tylenol was discussed with patient's primary care provider due to previous liver disease. Patient was then instructed to take oxycodone 1-2 every 4-6 hours as needed for breakthrough pain. We will avoid using anti-inflammatory medications in this patient due to use of Xarelto. OARRS report was reviewed. Risk of abuse potential for narcotic pain medication was discussed and reviewed. Patient was advised not to drive motor vehicle or operate heavy equipment with taking narcotic pain medication. Patient voiced understanding. 3. Constipation: Patient was instructed to take senna as instructed until her first bowel movement to decrease risk of impaction following surgery. Patient was instructed if she has not had a bowel movement in 3 days postoperatively to call our office for reevaluation. 4. Physical therapy: Patient will be weightbearing as tolerated with a walker. Patient does have outpatient physical therapy that will be scheduled with [facility] for home therapy. 5. H&H: 8.6/24.4. Patient is currently asymptomatic at this time. We will begin anemia protocol at this time due to hemoglobin being less than 10. 6. Doxycycline: Patient will be on doxycycline for 2 weeks postoperatively due to positive Staphylococcus testing before surgery. Patient was educated on the risk of sunburn while taking doxycycline. Patient was educated to take probiotic or supplement with probiotic yogurt while taking antibiotics. 7. Incentive spirometry: Patient was encouraged to use incentive spirometer every hour that she is awake for the first week to exercise long and decrease risk postoperative lung infection. 8. We will have patient receive a Doppler ultrasound of the left lower extremity before discharge due to history of DVT and current swelling and pain in her calf to palpation. 9. Patient is to follow-up per postoperative instructions. 10. Medicine is currently involved to help manage chronic disease. Appreciate recommendations from medicine for safe and proper discharge planning. 11. Disposition: We will plan for discharge today as long as pain maintains adequately controlled, patient works with and does well with physical therapy, and is okay from medicine standpoint. Patient states that she will have help caring for herself at home as she lives with her sister who will help her. Patient does have 2-week postoperative visit scheduled as well as outpatient physical therapy through [facility] to begin at home physical therapy. Patient would like her medications sent to [facility] pharmacy. Patient states that she does not need her Tylenol as she already has those medications at home. Patient was encouraged to call with any questions, concerns, new problems. All questions were answered best my ability.
[2024-05-06 09:13] VITALS: BP 109/56; PULSE 69; RESP 16; TEMP 36.6; O2SAT 100
--- NOTE | 2024-05-06 09:17 | PCM.DC ---
Discharge Instructions Diet Discharge Diet: No restrictions DC O2, CPAP, BIPAP needs Home O2 Discharge instructions: No Dressing / Incision Discharge Activity: May Not Drive (Until can walk 100 feet with use of the cane and is no longer taking narcotic pain medications.) Weight Bearing Status: Weight bearing as tolerated (With walker.) Keep extremity elevated above heart level: Left Leg Dressing / Incision Call your doctor if your incision/area has: Continuous Slow Oozing, Sudden Increased Bleeding, Increased Pain/ Swelling, Increased Redness, Foul Smelling Discharge and Swelling at the incision site Call your doctor if you observe: Fever of 101 or Higher, Coldness, Increased Pain, Change in Color, Inability to urinate, Inability to have a bowel movement, Shortness of breath, Dizziness, Fainting spells, Chest pain, Increased palpitations (irregular heartbeat), Calf discomfort and Uncontrolled pain Remove Dressing in: 5 days (Patient can remove dressing on 05/10/2024. Patient can leave open to air as long as incision is clean dry and intact.) Cleanse incision/area with: Soap & Water Additional Dressing/Incision Instructions:: Once postoperative dressing has been removed only use gentle soap and water over the incision. Do not use any ointments, Neosporin, salves, alcohol pads over the incision for 6 weeks postoperatively. Do not submerge underwater for 6 weeks postoperatively. Continue with MORRIS hose/elastic stockings for 2 weeks postoperatively. May remove at nighttime but needs to be placed back on the leg during the day. Patient was educated on the risk of sunburn while taking doxycycline. Patient was encouraged to take probiotic while taking doxycycline. Patient was educated not to take any anti-inflammatories while taking Xarelto. Do NOT use alcohol with narcotic pain medication. Do NOT make important decisions while taking narcotic medication. If you have problems with taking your medication (rash, itching, nausea, etc.) call the office at once. Follow Up Care Test Results: Test results from this visit will be discussed in further detail at your follow-up appointment, if applicable. Discharge Plan Admission Admit Date/Time: 05/05/24 07:10 Attending Provider: Atul Costello Primary Care Provider: Aretha Saldana Consulting Providers: Belkis De Los Santos; Anjum Kaur Discharge Orders/Prescriptions Prescriptions: New acetaminophen 500 mg Tablet 1,000 mg PO TID Qty: 0 0RF doxycycline monohydrate 100 mg Capsule 100 mg PO BID 14 Days Qty: 28 0RF sennosides-docusate sodium [Stimulant Laxative Plus] 8.6-50 mg Tablet 2 tab PO BID 3 Days Qty: 12 0RF famotidine 20 mg Tablet 20 mg PO DAILY 30 Days Qty: 30 0RF ferrous sulfate [FeroSul] 325 mg (65 mg iron) Tablet 325 mg PO 1200,1700 14 Days Qty: 28 0RF folic acid 1 mg Tablet 1 mg PO BREAKFAST 14 Days Qty: 14 0RF Xarelto 10 mg Tablet 10 mg PO DAILY 14 Days Qty: 14 0RF oxycodone 5 mg Tablet 5 - 10 mg PO Q4H PRN PRN (Reason: as needed for pain) 7 Days Qty: 42 0RF Continued naproxen sodium [Aleve] 220 mg tablet 220 mg PO BID PRN (Reason: pain) cholecalciferol (vitamin D3) [Vitamin D3] 25 mcg (1,000 unit) capsule 25 mcg PO DAILY Alive Women's Multivitamin 4.5 mg iron- 120 mcg-60 mcg tablet 1 tab PO DAILY No Action acetaminophen [8 Hour Pain Reliever] 650 mg tablet extended release 650 mg PO Q12H PRN (Reason: pain) Other Ambulatory Orders: 12 Lead EKG (Routine) Timeframe: [id number] Location: None Selected Ordered By: Dr. Atul Costello CBC W/Diff, Automated (Routine) Timeframe: 1 Week Facility: [facility] - Location: Laboratory Ordered By: Mitzi Knight Referrals / Follow Up: physical,therapy [Other] ([facility] will call to schedule) Aretha Saldana PA [Primary Care Provider] - Jeremias Rose PA-C [Med Staff - Adv Practice Prof] - 05/19/24 3:15 pm Disposition Disposition (needs filled in before D/C Order can be placed): Home, Self Care
[2024-05-06 09:52] VITALS: BMI 33.6
--- NOTE | 2024-05-06 11:19 | CASEMGMT ---
Met with patient to complete CASTANEDA form. CASTANEDA form explained to patient who voiced understanding and signed form. Original form placed in pt?s chart and copy provided to patient. Kylah Garay, Discharge Planning Asst
--- NOTE | 2024-05-06 11:41 | CASEMGMT ---
RITU FONTANA Assessment: Face to Face with pt for initial transition planning/care coordination assessment. RITU FONTANA introduced self and role at [facility], pt voices understanding and consents to assessment. Pt is A&O x4 and answers all questions appropriately at this time. Pt sitting up in chair in no distress. Care providers, pharmacy, and demographics verified/updated. Strata: 1 Admitting Dx: Total Knee Replacement PCP: Les Specialists: Erik Costello Pharmacy: [facility] Insurance: [facility] Prescription Benefit: yes LNOK: SisterElzbieta Living Arrangements: Pt lives with sister in a ranch home with 2 steps to enter in ADLs: Pt states I with ADLs and IADLs. She states her laundry is in the basement but sister will help her over the next few weeks. Transportation: Pt family provides transportation. DME: [employer] C/SNF: Denies Hx of. Pt states she is going to OP therapy through [facility] in [place]. She states they have not called her yet with an appointment day. RITU FONTANA called [facility], they states they have her scheduled for with [facility] PT, they will call pt tomorrow with time of appointment. Pt states no further concerns/needs. CM to follow. Advised pt to ask CM if any further question/concerns/needs arise, voices understanding. Pt Goal: Home Plan: Home with [facility] PT. Teodoro CHANEY CM
[2024-05-06] MEDS: Ferrous Sulfate 325 MG Tablet PO ×2 (11:48→16:03)
[2024-05-06] MEDS: Doxycycline 100 MG CAPSULE PO (13:24)
[2024-05-06 13:52] VITALS: BMI 33.6
[2024-05-06 14:27] VITALS: BP 112/52; PULSE 77; RESP 16; TEMP 36.9; O2SAT 100
--- NOTE | 2024-05-06 14:43 | CHAPLAIN ---
Type of Pastoral Visit _x__ Initial Visit ___ Follow-up Visit ___ On-call Visit ___ General Patient Visit ___ Spiritual Assessment ___ Family Conference ___ Bereavement ___ Rapid Response ___ Code Blue ___ Other (describe below) Pastoral Care Referral From _x__ Patient ___ Family ___ Nurse ___ Physician ___ Baseball Inspector And Repairer ___ Program Review Director ___ Other (describe below) Sacrament/Intervention _x__ Active listening ___ Anointing ___ Tenriism ___ Bereavement ___ Communion _x__ Elicia exploration ___ ___ Life review _x__ Prayer ___ Reconciliation ___ Sacrament of Sick _x__ Supportive presence ___ Wedding ___ Other (describe below) Pastoral Comments patient is waiting on a test before she can be released; sister is with her and waiting for discharge approval; pt is talkative and expressive about how she is feeling, what was different than what she expected, their elicia community, and living arrangements; pt is welcoming of prayer and spiritual care support; pt expresses gratitude for the visit
--- NOTE | 2024-05-06 15:06 | VDLE_ITS ---
Reason For Study Reason For Study: PAIN RIGHT LEFT CFV is compressible, spontaneous, phasic, competent GSV is normal. and demonstrates normal augmentation. CFV is compressible, spontaneous, phasic, competent, Procedure and demonstrates normal augmentation. This is a venous duplex using B-mode, color flow and FV is compressible, spontaneous, phasic, competent spectral Doppler. and demonstrates normal augmentation. Exam performed portable in patient room. POP V is compressible, spontaneous, phasic, competent A preliminary report was called and/or faxed to [facility] and demonstrates normal augmentation. 314 @ 0345 PM. T/P Trunk is compressible. PTV is compressible. LT PerV is compressible. VL/Venous Duplex US, Unilateral Interpretation Summary Deep veins of the left lower extremity are patent and compressible segmentally. There is no evidence of left lower extremity deep vein thrombosis. The left great saphenous vein appears patent an d compressible segmentally. Ordering Physician: Mitzi Knight Referring Physician: Tyson Costello Melissa Performed By: Tish Wise, NOÉCS, RVT
[2024-05-06 17:10] VITALS: BP 117/70; PULSE 83; RESP 17; TEMP 36.8; O2SAT 100
== END 2024-05-06 17:50 | disposition home or self-care (01) ==
LOC: SDC 12:05 → MS3 12:05
PROVIDERS: Anesthesiology; Internal Medicine; Admitting Provider Specialist; PCP Physician Assistant; Referring Provider Specialist; Visit Provider Specialist
PROC: 0SRD0JZ Replacement of Left Knee Joint with Synthetic Substitute, Open Approach (ICD-10-PCS; CPT 27447; principal; 2024-05-05 08:15)
DX: M17.0 Bilateral primary osteoarthritis of knee (principal); M06.9 Rheumatoid arthritis, unspecified; E11.65 Type 2 diabetes mellitus with hyperglycemia; E11.59 Type 2 diabetes mellitus with other circulatory complications; Z86.718 Personal history of other venous thrombosis and embolism; M25.562 Pain in left knee; D72.819 Decreased white blood cell count, unspecified; E66.9 Obesity, unspecified; Z68.32 Body mass index [BMI] 32.0-32.9, adult; R16.1 Splenomegaly, not elsewhere classified; D69.6 Thrombocytopenia, unspecified; K74.00 Hepatic fibrosis, unspecified
CPT/HCPCS: 27447; 01402; 36415; 73560; 80048; 82040; 82962; 83036; 83735; 85027; 85610; 87077; 87081; 88304; 88305; 88311; 93971; 94668; 96365; 96366; 97110; 97162; 97166; 97530; 99221; C1776; G0378; J2405